=== PATIENT | male | born 1965 | race Caucasian/White ===

== ENCOUNTER 2020-02-06 21:08 | Emergency (ER) | payer BC ==
[2020-02-06 21:33] VITALS: BP 173/106; PULSE 74; RESP 18; TEMP 98.5
--- NOTE | 2020-02-06 22:02 | XR ---
EXAMINATION TYPE: XR ankle complete RT DATE OF EXAM: 02/06/2020 COMPARISON: NONE HISTORY: Ankle pain TECHNIQUE: 3 views FINDINGS: There are plantar and Achilles calcaneal spurs. There is soft tissue swelling over the late ral malleolus. There is nondisplaced oblique fracture of the distal fibula. There is no dislocation. Subtalar joint appears normal. IMPRESSION: Acute nondisplaced fracture distal fibula. Calcaneal spurring.
--- NOTE | 2020-02-06 22:03 | XR ---
EXAMINATION TYPE: XR elbow complete LT DATE OF EXAM: 02/06/2020 COMPARISON: NONE HISTORY: Elbow pain TECHNIQUE: 3 views FINDINGS: I see no fracture nor dislocation. Joint spaces are normal. There is no sign of elbow joint effusion. IMPRESSION: Negative left elbow exam. No fracture seen.
--- NOTE | 2020-02-06 23:10 | ED ---
General Adult HPI - General Chief complaint: Extremity Injury, Lower Stated complaint: RT foot injury Time Seen by Provider: 02/06/20 21:22 Source: patient, RN notes reviewed, old records reviewed Mode of arrival: wheelchair Limitations: no limitations - History of Present Illness Initial comments: 54-year-old male patient to ED for chief complaint of right ankle and left elbow pain. Patient reported that he was walking down stairs on his dark. Patient reports that he stepped off the last stair and slipped down. Patient reports that he twisted his right ankle and he also landed on his right elbow. Denies any trauma to head or neck. This occurred last night. Denies any use of blood thinners. Systemic: Pt denies fatigue, fever/chills, rash. Pt denies weakness, night sweats, weight loss. Neuro: Pt denies headache, visual disturbances, syncope or pre-syncope. HEENT: Pt denies ocular discharge or irritation, otalgia, rhinorrhea, pharyngitis or notable lymphadenopathy. Cardiopulmonary: Pt denies chest pain, SOB, heart palpitations, dyspnea on exertion. Abdominal/GI: Pt denies abdominal pain, n/v/d. : Pt denies dysuria, burning w/ urination, frequency/urgency. Denies new onset urinary or bowel incontinence. MSK: Pt denies myalgia, loss of strength or function in extremities. Neuro: Pt denies new onset weakness, paresthesias. - Related Data Allergies Allergy/AdvReac Type Severity Reaction Status Date / Time No Known Allergies Allergy Verified 02/06/20 21:20 Review of Systems ROS Statement: Those systems with pertinent positive or pertinent negative responses have been documented in the HPI. ROS Other: All systems not noted in ROS Statement are negative. Past Medical History Past Medical History: Hyperlipidemia, Hypertension History of Any Multi-Drug Resistant Organisms: None Reported Past Surgical History: Orthopedic Surgery Additional Past Surgical History / Comment(s): Right ankle Past Psychological History: No Psychological Hx Reported Smoking Status: Never smoker Past Alcohol Use History: Occasional Past Drug Use History: None Reported General Exam - General Exam Comments Initial Comments: Constitutional: NAD, AOX3, Pt has pleasant affect. HEENT: NC/AT, trachea midline, neck supple. External ears appear normal, without discharge. Mucous membranes moist. Eyes PERRLA, EOM intact. There is no scleral icterus. No pallor noted. Cardiopulmonary: RRR, no murmurs, rubs or gallops, no JVD noted. Lungs CTAB in anterior and posterior lyons. No peripheral edema. Abdominal exam: Abdomen soft and non-distended. Abdomen non-tender to palpation in all 4 quadrants. Bowel sounds active in LLQ. No hepatosplenomegaly. No ecchymosis Neuro: CN II-XII intact. No nuchal rigidity. No raccon eyes, no castro sign, no hemotympanum. No cervical spinal tenderness. MSK: Tenderness to right lateral malleoli. Posterior tibialis pulse +2. Sensation intact. Foot and ankle. Patient placed in a posterior ankle splint. Neurovascularly intact before and after splint placement. No focal area of tenderness to left elbow. Full active range of motion. No tenderness to hand or wrist bilaterally. Full active ROM in upper and lower extremities, 5/5 stregnth. Limitations: no limitations Course Vital Signs 02/06/20 21:12 Temperature 98.5 F Pulse Rate 74 Respiratory 18 Rate Blood Pressure 173/106 O2 Sat by Pulse 97 Oximetry Procedures - Orthopedic Splinting/Casting Injury #1 Side: right Lower Extremity Injury Location: short leg Lower Extremity Immobilizer: posterior splint Medical Decision Making - Medical Decision Making 54-year-old male patient presents to ED for evaluation for right ankle sprain left elbow pain. Chief complaint ankle pain. Pt VSS, afebrile. Physical exam displayed right ankle tenderness at lateral malleolus. Elbow nontender full active ROM. Plain film of ankle displayed acute nondisplaced fracture distal fibula. Plain film of elbow is negative. Pt will be discharged with outpatient orthopedic follow up. Will use crutches and not bear weight on right lower extrmeity. Will return to ED if condition worsens. Case discussed with Dr. Unger. Disposition Clinical Impression: Fracture of distal fibula Disposition: HOME SELF-CARE Condition: Stable Instructions (If sedation given, give patient instructions): Ankle Fracture (ED) Additional Instructions: Use crutches. Do not bear weight on right lower extremity. Follow-up with primary care provider and orthopedic consult tomorrow. Return to ER if condition worsens. Continue to wear splint. Is patient prescribed a controlled substance at d/c from ED?: No Referrals: Kvng Mendoza MD [Primary Care Provider] - 1-2 days Siddharth Batista MD [STAFF PHYSICIAN] - 1-2 days
== END 2020-02-06 23:16 | disposition home or self-care (01) ==
LOC: EC 21:08
DX: S82.64XA Nondisplaced fracture of lateral malleolus of right fibula, initial encounter for closed fracture (principal); M25.522 Pain in left elbow; W10.9XXA Fall (on) (from) unspecified stairs and steps, initial encounter; Y93.01 Activity, walking, marching and hiking
CPT/HCPCS: 29515; 99283